=== PATIENT | female | born 1975 | race Caucasian/White ===

== ENCOUNTER 2017-06-03 13:41 | Emergency (ER) | payer OTHER ==
[2017-06-03] MEDS ORDERED: LIDOCAINE VISCOUS 2% 15 ML UDC MM STA (14:09)
[2017-06-03] MEDS ORDERED: MAG HYDROX/AL HYDROX/SIMETH 30 ML UDC PO STA (14:09)
[2017-06-03 14:24] LABS: BASOPHILS % (AUTO) 0.8 %; EOSINOPHILS # (AUTO) 0.1 10^3/uL (0.0-0.7); EOSINOPHILS % (AUTO) 1.7 %; LYMPHOCYTES # (AUTO) 1.2 10^3/uL (1.5-3.5); LYMPHOCYTES % (AUTO) 28.5 %; MEAN CORPUSCULAR HEMOGLOBIN 31.7 pg (27.0-31.0); MEAN CORPUSCULAR HGB CONC 34.5 g/dL (32.0-36.0); MEAN CORPUSCULAR VOLUME 91.8 fL (81.0-99.0); MONOCYTES # (AUTO) 0.2 10^3/uL (0.0-1.0); MONOCYTES % (AUTO) 5.1 %; NEUTROPHILS # (AUTO) 2.8 10^3/uL (1.5-6.6); NEUTROPHILS % (AUTO) 63.9 %; PLT - PLATELET COUNT 190 10^3/uL (130-450); RED BLOOD COUNT 4.41 10^6/uL (4.20-5.40); RED CELL DISTRIBUTION WIDTH 12.5 % (12.0-15.0); WHITE BLOOD COUNT 4.3 x10^3/uL (4.8-10.8)
[2017-06-03 14:42] LABS: ALBUMIN 4.7 g/dL (3.2-5.5); ALBUMIN/GLOBULIN RATIO 1.8 (1.0-2.2); BILIRUBIN,TOTAL 0.6 mg/dL (0.2-1.0); CALCIUM 9.2 mg/dL (8.5-10.3); CREATININE 0.8 mg/dL (0.4-1.0); TOTAL PROTEIN 7.3 g/dL (6.7-8.2)
--- NOTE | 2017-06-03 15:30 | XRAY Preliminary Report ---
Exam: XR CHEST 2 VIEW X-RAY IMPRESSION: Negative chest [facility] SITE ID: [id number]
--- NOTE | 2017-06-03 15:30 | XRAY Report ---
EXAM: CHEST RADIOGRAPHY EXAM DATE: 06/03/2017 02:25 PM. CLINICAL HISTORY: Chest pain. COMPARISON: None. TECHNIQUE: 2 views. FINDINGS: Lungs/Pleura: No focal opacities evident. No pleural effusion. No pneumothorax. Normal volumes. Mediastinum: Heart and mediastinal contours are unremarkable. Other: None. IMPRESSION: Negative chest [facility] Referring Provider Line: [phone] SITE ID: [id number]
--- NOTE | 2017-06-03 15:35 | ED Physician Documentation ---
PD HPI CHEST PAIN - Stated complaint Stated Complaint: CHEST PX - Chief complaint Chief Complaint: Cardiac - History obtained from History obtained from: Patient - History of Present Illness Timing - onset: Today Timing - onset during: Rest Timing - duration: Seconds Timing - details: Abrupt onset, Now resolved, Waxing and waning Quality: Pressure, Sharp, Pain Location: Substernal Radiation: Back Improved by: Nothing Associated symptoms: Nausea. No: Vomiting, Feeling faint / dizzy, General Weakness, Palpitations, Cough Similar symptoms before: Diagnosis (esophageal spasm occured with morphine) Recently seen: Not recently seen - Additional information Additional information: 41-year-old female with a history of irritable bowel syndrome has developed intermittent episodes of severe chest pain substernal radiating to her back. These episodes are brief in nature lasting approximately 30 seconds and severe. She is having increased episodes and has come to the emergency department for evaluation. She states that this started when she became nauseous and the pain has become worse. Review of Systems Constitutional: denies: Fever Eyes: denies: Decreased vision Ears: denies: Ear pain Nose: denies: Congestion Throat: denies: Sore throat Cardiac: reports: Chest pain / pressure. denies: Palpitations Respiratory: denies: Dyspnea, Cough GI: reports: Nausea. denies: Abdominal Pain, Vomiting : denies: Dysuria, Frequency Skin: denies: Rash Musculoskeletal: reports: Back pain. 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: Hysterectomy - Present Medications Home Medications: Ambulatory Orders Medication Instructions Recorded Confirmed Sucralfate [Carafate] 1 gm PO ACHS #30 tablet 06/03/17 Topiramate [Topamax] 50 mg PO 06/03/17 - Allergies Allergies/Adverse Reactions: Allergies Allergy/AdvReac Type Severity Reaction Status Date / Time morphine Allergy Unknown Verified 06/03/17 13:49 - Social History Does the pt smoke?: Yes Smoking Status: Current every day smoker Does the pt drink ETOH?: Yes Does the pt have substance abuse?: No PD ED PE NORMAL - Vitals Vital signs reviewed: Yes (Tachycardic and hypertensive) - General General: Alert and oriented X 3, No acute distress, Well developed/nourished - HEENT HEENT: Atraumatic, PERRL, EOMI - Neck Neck: Supple, no meningeal sign, No bony TTP - Cardiac Cardiac: RRR, No murmur - Respiratory Respiratory: No respiratory distress, Clear bilaterally, Other (Chest wall is nontender to palpation) - Abdomen Abdomen: Soft, Non tender - Back Back: No CVA TTP, No spinal TTP - Derm Derm: Normal color, Warm and dry, No rash - Extremities Extremities: No deformity, No edema - Neuro Neuro: Alert and oriented X 3, No motor deficit, No sensory deficit, Normal speech Eye Opening: Spontaneous Motor: Obeys Commands Verbal: Oriented GCS Score: 15 - Psych Psych: Normal mood, Normal affect Results - Vitals Vitals: Vital Signs - 24 hr 06/03/17 06/03/17 06/03/17 13:44 15:26 16:34 Temperature 36.8 C Heart Rate 110 H 75 74 Respiratory 16 14 16 Rate Blood Pressure 132/78 H 113/70 107/68 O2 Saturation 100 100 98 Oxygen O2 Source Room air - EKG (time done) 1350 Rate: Rate (enter#) (84) Rhythm: NSR Ischemia: Normal ST segments Compare to prior EKG: Old EKG unavailable Computer interpretation: Agree with computer - Labs Labs: Laboratory Tests 06/03/17 06/03/17 06/03/17 14:07 14:07 14:07 WBC 4.3 L RBC 4.41 Hgb 14.0 Hct 40.5 MCV 91.8 MCH 31.7 H MCHC 34.5 RDW 12.5 Plt Count 190 MPV 8.0 Neut # 2.8 Lymph # 1.2 L [place] # 0.2 Eos # 0.1 Baso # 0.0 Absolute Nucleated RBC 0.00 Nucleated RBC % 0.1 Sodium 136 Potassium 3.3 L Chloride 106 Carbon Dioxide 23 Anion Gap 7.0 BUN 15 Creatinine 0.8 Estimated GFR (MDRD) 78 L Glucose 115 H Calcium 9.2 Total Bilirubin 0.6 AST 23 ALT 16 Alkaline Phosphatase 58 Troponin I < 0.04 Total Protein 7.3 Albumin 4.7 Globulin 2.6 Albumin/Globulin Ratio 1.8 Lipase 26 Urine Color Urine Clarity Urine pH Ur Specific [place] Urine Protein Urine Glucose (UA) Urine Ketones Urine Occult Blood Urine Nitrite Urine Bilirubin Urine Urobilinogen Ur Leukocyte Esterase Ur Microscopic Review Urine Culture Comments Urine HCG, Qual 06/03/17 14:32 WBC RBC Hgb Hct MCV MCH MCHC RDW Plt Count MPV Neut # Lymph # [place] # Eos # Baso # Absolute Nucleated RBC Nucleated RBC % Sodium Potassium Chloride Carbon Dioxide Anion Gap BUN Creatinine Estimated GFR (MDRD) Glucose Calcium Total Bilirubin AST ALT Alkaline Phosphatase Troponin I Total Protein Albumin Globulin Albumin/Globulin Ratio Lipase Urine Color YELLOW Urine Clarity CLEAR Urine pH 6.5 Ur Specific [place] <=1.005 Urine Protein NEGATIVE Urine Glucose (UA) NEGATIVE Urine Ketones NEGATIVE Urine Occult Blood NEGATIVE Urine Nitrite NEGATIVE Urine Bilirubin NEGATIVE Urine Urobilinogen 0.2 (NORMAL) Ur Leukocyte Esterase NEGATIVE Ur Microscopic Review NOT INDICATED Urine Culture Comments NOT INDICATED Urine HCG, Qual NEGATIVE - Rads (name of study) 2 view chest Radiology: Prelim report reviewed (Impression: Negative chest.), EMP read indepedently, See rad report PD MEDICAL DECISION MAKING - ED course Complexity details: reviewed results, re-evaluated patient, considered differential, d/w patient ED course: 41-year-old female with substernal chest pain radiating to her back and episodes has a history of esophageal spasm associated with morphine. She feels the symptoms she was having today are reminiscent of that but not as severe. She looks significantly uncomfortable with each of these episodes and here in the emergency department she is administered a GI cocktail consisting of viscous lidocaine and Mylanta and she has had a reduction in the frequency of these attacks. She is given famotidine intravenously and Carafate orally. Departure - Departure Disposition: 01 Home, Self Care Clinical Impression: Esophageal spasm Condition: Stable Instructions: ED Spasm Esophageal Follow-Up: Your, doctor [Other] Prescriptions: Sucralfate [Carafate] 1 gm PO ACHS #30 tablet Comments: Today it appears your pain is related to esophageal spasm. I recommend that you use some medication to reduce the acid in your stomach on a regular basis for at least 1 week. In addition I have written a prescription for a medication called Carafate which you should put on your tongue and allow to dissolve about a half hour before eating and at bedtime.
[2017-06-03 15:44] LABS: BILIRUBIN,URINE NEGATIVE (NEGATIVE); GLUCOSE, URINE (UA) NEGATIVE (NEGATIVE); KETONES,URINE (UA) NEGATIVE (NEGATIVE); LEUKOCYTE ESTERASE, URINE NEGATIVE (NEGATIVE); NITRITE,URINE NEGATIVE (NEGATIVE); OCCULT BLOOD,URINE NEGATIVE (NEGATIVE); PH,URINE 6.5 PH (5.0-7.5); PROTEIN,URINE NEGATIVE (NEGATIVE); UROBILINOGEN,URINE 0.2 (NORMAL) E.U./dL (NORMAL)
[2017-06-03] MEDS ORDERED: SUCRALFATE 1 GM/10 ML UDC PO STA (15:46)
[2017-06-03] MEDS ORDERED: FAMOTIDINE 20 MG/50 ML 50 ML IV ONE (15:47)
[2017-06-03 15:49] LABS: CLARITY,URINE CLEAR (CLEAR)
[2017-06-03 15:50] LABS: HCG UR QUAL NEGATIVE
[2017-06-03 16:35] VITALS: BP 107/68
== END 2017-06-03 16:35 | disposition home or self-care (01) ==
LOC: ED 13:41
DX: K22.4 Dyskinesia of esophagus (principal); F17.200 Nicotine dependence, unspecified, uncomplicated
CPT/HCPCS: 36415; 71046; 80053; 81003; 81025; 83690; 84484; 85025; 93005; 96365; 99283; 99284; A9270; 81001; 87086

== ENCOUNTER 2017-11-20 08:01 | Outpatient (CLI) | payer OTHER ==
[2017-11-20] MEDS ORDERED: IOPAMIDOL-300 50 ML VIAL ONE (08:15)
[2017-11-20] MEDS ORDERED: IOPAMIDOL-300 100 ML VIAL ONE (09:04)
[2017-11-20] MEDS ORDERED: IOPAMIDOL-300 50 ML VIAL PO ONE (09:31)
[2017-11-20] MEDS ORDERED: IOPAMIDOL-300 100 ML VIAL IVP ONE (09:31)
--- NOTE | 2017-11-20 12:04 | CT Report ---
Reason: GENERALIZED ABD PAIN, CHANGE IN BOWEL HABITS, NAUS Procedure Date: 11/20/2017 Accession Number: [id number] / [id number] Procedure: CT - Abdomen/Pelvis W/ CPT Code: FULL RESULT: EXAM: CT ABDOMEN AND PELVIS EXAM DATE: 11/20/2017 09:20 AM. CLINICAL HISTORY: Generalized abdominal pain, change in bowel habits, nausea. COMPARISONS: None. TECHNIQUE: Routine helical CT imaging was performed through the abdomen and pelvis. IV contrast: 100 mL Isovue-300. Enteric contrast: Yes. Reconstructions: Coronal and sagittal. In accordance with CT protocol optimization, one or more of the following dose reduction techniques were utilized for this exam: automated exposure control, adjustment of mA and/or KV based on patient size, or use of iterative reconstructive technique. FINDINGS: Lung Bases: Unremarkable. Liver: Normal. No masses. Gallbladder/Bile Ducts: Status post cholecystectomy. Spleen: Normal. Pancreas: Normal. Adrenal Glands: Normal. Kidneys: Normal. No masses or hydronephrosis. Peritoneal Cavity/Bowel: Suggestion of thickening of haustral folds of the ascending and transverse colon. No free fluid, free air or adenopathy. No masses or acute inflammatory process. The appendix is well visualized and normal. Pelvic Organs: The patient is status hysterectomy. What is felt to represent a left ovary is identified along the left iliac vessels. Vasculature: No aneurysms or other significant abnormality. Bones: No significant abnormality. Other: None. IMPRESSION: Thickened haustral folds of the transverse and ascending colon. Recommend direct visualization by colonoscopy to evaluate for etiologies such as inflammatory bowel disease. [facility]
== END 2017-11-20 08:02 | disposition home or self-care (01) ==
LOC: DI 08:01
PROVIDERS: ATTEND Internal Medicine
DX: K63.89 Other specified diseases of intestine (principal)
CPT/HCPCS: 74177; Q9967

== ENCOUNTER 2018-03-28 08:38 | Outpatient (CLI) | payer OTHER | END 2018-03-28 08:39 | disposition home or self-care (01) | LOC: EMS 08:38 | PROVIDERS: ATTEND Surgery | DX: R07.9 Chest pain, unspecified (principal) | CPT/HCPCS: A0425; A0427 ==

== ENCOUNTER 2018-03-28 08:59 | Emergency (ER) | payer OTHER ==
--- NOTE | 2018-03-28 09:09 | ED Physician Documentation ---
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 Pain worse with breathing. Feels short of breath.), Still present Quality: Aching, Sharp, Pain. No: Pressure, Tightness Location: Substernal, Left chest Radiation: No: Jaw, Neck, Back Worsened by: Inspiration, Movement. No: Palpation Associated symptoms: Shortness of air. No: Nausea, Vomiting, Feeling faint / dizzy, Palpitations, Cough Similar symptoms before: Has not had sx before Recently seen: Not recently seen Review of Systems Constitutional: denies: Fever Nose: reports: Congestion (had some MARVEL symptoms last week but is better. Did not really have a cough.). denies: Rhinorrhea / runny nose Throat: denies: Sore throat Cardiac: reports: Chest pain / pressure. denies: Palpitations, Pedal edema, Calf pain Respiratory: reports: Dyspnea. 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 - Present Medications Home Medications: Ambulatory Orders Medication Instructions Recorded Confirmed Sucralfate [Carafate] 1 gm PO ACHS #30 tablet 06/03/17 Topiramate [Topamax] 50 mg PO 06/03/17 Dexamethasone [Decadron] 4 mg PO DAILY #5 tablet 03/28/18 Naproxen 500 mg PO BID #20 tablet 03/28/18 Oxycodone HCl/Acetaminophen 1 - 2 each PO Q6H PRN #14 tablet 03/28/18 [Percocet 5-325 mg Tablet] - Allergies Allergies/Adverse Reactions: Allergies Allergy/AdvReac Type Severity Reaction Status Date / Time morphine Allergy Unknown Verified 03/28/18 09:12 - Social History Does the pt smoke?: Yes Smoking Status: Current every day smoker Does the pt drink ETOH?: Yes Does the pt have substance abuse?: No - Family History Family history: denies: CAD, Sudden PD ED PE NORMAL - Vitals Vital signs reviewed: Yes (good sats and heart rate. ) - General General: Alert and oriented X 3, Well developed/nourished, Other (seems in pain; had improved with pain meds from EMS, but wearing off and pain returning. ) - HEENT HEENT: Ears normal, Pharynx benign - Neck Neck: Supple, no meningeal sign, No adenopathy - Cardiac Cardiac: RRR, No rub. No: No murmur (1/6 murmur left sternal, systolic seems likely MR. ) - Respiratory Respiratory: Clear bilaterally - Abdomen Abdomen: Normal bowel sounds, Soft, Non tender, Non distended - Female Female : Deferred - Rectal Rectal: Deferred - Back Back: No CVA TTP - Derm Derm: Normal color, Warm and dry - Extremities Extremities: No tenderness to palpate, Normal ROM s pain, No edema, No calf tenderness / cord Results - Vitals Vitals: Vital Signs - 24 hr 03/28/18 03/28/18 03/28/18 09:07 09:17 10:50 Temperature 36.3 C L Heart Rate 89 76 58 L Respiratory 14 14 14 Rate Blood Pressure 140/69 H 140/69 H 107/74 O2 Saturation 96 95 98 03/28/18 03/28/18 12:12 12:32 Temperature 36.8 C Heart Rate 62 77 Respiratory 16 17 Rate Blood Pressure 111/46 L 111/66 O2 Saturation 96 94 Oxygen O2 Source Room air - EKG (time done) 09:05 Rate: Rate (enter#) (80) Rhythm: NSR [place]: Normal Intervals: Normal NM QRS: Normal Ischemia: Normal ST segments. No: ST elevation c/w ischemia, ST depression - Labs Labs: Laboratory Tests 03/28/18 03/28/18 03/28/18 09:45 09:45 09:45 WBC 5.0 RBC 4.41 Hgb 13.9 Hct 39.8 MCV 90.1 MCH 31.5 H MCHC 34.9 RDW 12.2 Plt Count 180 MPV 8.3 Neut # (Auto) 3.6 Lymph # (Auto) 0.9 L [place] # (Auto) 0.3 Eos # (Auto) 0.1 Baso # (Auto) 0.0 Absolute Nucleated RBC 0.00 Nucleated RBC % 0.0 D-Dimer Sodium 136 Potassium 4.0 Chloride 102 Carbon Dioxide 24 Anion Gap 10.0 BUN 18 Creatinine 0.8 Estimated GFR (MDRD) 78 L Glucose 90 Calcium 9.6 Total Bilirubin 0.9 AST 22 ALT 15 Alkaline Phosphatase 55 Troponin I < 0.04 B-Natriuretic Peptide Total Protein 7.1 Albumin 4.4 Globulin 2.7 Albumin/Globulin Ratio 1.6 Lipase 32 03/28/18 03/28/18 09:45 09:45 WBC RBC Hgb Hct MCV MCH MCHC RDW Plt Count MPV Neut # (Auto) Lymph # (Auto) [place] # (Auto) Eos # (Auto) Baso # (Auto) Absolute Nucleated RBC Nucleated RBC % D-Dimer < 200.0 L Sodium Potassium Chloride Carbon Dioxide Anion Gap BUN Creatinine Estimated GFR (MDRD) Glucose Calcium Total Bilirubin AST ALT Alkaline Phosphatase Troponin I B-Natriuretic Peptide 10 Total Protein Albumin Globulin Albumin/Globulin Ratio Lipase - Rads (name of study) chest xray Radiology: Prelim report reviewed (normal exam), EMP read contemporaneously, See rad report PD MEDICAL DECISION MAKING - ED course Complexity details: reviewed results (no threatening causes for the chest pain with negative CXR, BNP, Trop, D-dimer and ECG. Pleuritic in character, hurts for breathing. ), considered differential, d/w patient Departure - Departure Disposition: 01 Home, Self Care Clinical Impression: Chest pain, pleuritic Condition: Stable Record reviewed to determine appropriate education?: Yes Instructions: ED Chest Pain Pleurisy Follow-Up: TRACEY MCGOVERN ARNP [Primary Care Provider] - Prescriptions: Dexamethasone [Decadron] 4 mg PO DAILY #5 tablet Naproxen 500 mg PO BID #20 tablet Oxycodone HCl/Acetaminophen [Percocet 5-325 mg Tablet] 1 - 2 each PO Q6H PRN #14 tablet PRN Reason: pain Comments: Presume this is some inflammation in the chest wall muscles or around the lung. There is no signs of heart attack or heart failure blood clots pneumonia collapsed lung as the bad causes for chest pain. There is no particular test for pleurisy or musculoskeletal pain until presume its that category and treated with anti-inflammatories and pain medicine. Rest for couple of days it should taper down and improve. Recheck if not improved over the next few days or if other symptoms develop. Forms: Activity restrictions Discharge Date/Time: 03/28/18 12:34
[2018-03-28] MEDS ORDERED: SODIUM CHLORIDE 0.9% 1,000 ML IV ONE (09:28)
[2018-03-28] MEDS ORDERED: fentaNYL 100 MCG/2 ML VIAL IVP STA (09:29)
[2018-03-28] MEDS ORDERED: NITROGLYCERIN SL 0.4 MG TABLET SL STA (09:29)
[2018-03-28 09:52] LABS: BASOPHILS % (AUTO) 0.8 %; EOSINOPHILS # (AUTO) 0.1 10^3/uL (0.0-0.7); EOSINOPHILS % (AUTO) 1.7 %; HGB - HEMOGLOBIN 13.9 g/dL (12.0-16.0); LYMPHOCYTES # (AUTO) 0.9 10^3/uL (1.5-3.5); LYMPHOCYTES % (AUTO) 18.2 %; MEAN CORPUSCULAR HEMOGLOBIN 31.5 pg (27.0-31.0); MEAN CORPUSCULAR HGB CONC 34.9 g/dL (32.0-36.0); MEAN CORPUSCULAR VOLUME 90.1 fL (81.0-99.0); MEAN PLATELET VOLUME 8.3 fL (7.9-10.8); MONOCYTES # (AUTO) 0.3 10^3/uL (0.0-1.0); MONOCYTES % (AUTO) 6.5 %; NEUTROPHILS # (AUTO) 3.6 10^3/uL (1.5-6.6); NEUTROPHILS % (AUTO) 72.8 %; PLT - PLATELET COUNT 180 10^3/uL (130-450); RED BLOOD COUNT 4.41 10^6/uL (4.20-5.40); RED CELL DISTRIBUTION WIDTH 12.2 % (12.0-15.0)
[2018-03-28 10:06] LABS: ALBUMIN 4.4 g/dL (3.2-5.5); ALBUMIN/GLOBULIN RATIO 1.6 (1.0-2.2); BILIRUBIN,TOTAL 0.9 mg/dL (0.2-1.0); CALCIUM 9.6 mg/dL (8.5-10.3); CREATININE 0.8 mg/dL (0.4-1.0); TOTAL PROTEIN 7.1 g/dL (6.7-8.2)
--- NOTE | 2018-03-28 10:59 | XRAY Report ---
Reason: chest pressure, pleuritic today Procedure Date: 03/28/2018 Accession Number: [id number] / [id number] Procedure: XR - Chest 2 View X-Ray CPT Code: 52588 FULL RESULT: EXAM: CHEST RADIOGRAPHY EXAM DATE: 03/28/2018 10:35 AM. CLINICAL HISTORY: Chest pressure, pleuritic today. COMPARISON: CHEST 2 VIEW 06/03/2017 2:13 PM. TECHNIQUE: 2 views. FINDINGS: Lungs/Pleura: No focal opacities evident. No pleural effusion. No pneumothorax. Normal volumes. Mediastinum: Heart and mediastinal contours are unremarkable. Other: None. IMPRESSION: Normal 2-view chest radiography. [facility]
[2018-03-28] MEDS ORDERED: DEXAMETHASONE 10 MG/ML VIAL IVP STA (11:14)
[2018-03-28] MEDS ORDERED: KETOROLAC 30 MG/ML VIAL IVP STA (11:14)
[2018-03-28] MEDS ORDERED: HYDROmorphone 2 MG/ML VIAL IVP STA (11:14)
[2018-03-28 12:34] VITALS: BP 111/66
== END 2018-03-28 12:34 | disposition home or self-care (01) ==
LOC: EDUNIT# → ED 08:59
DX: R07.81 Pleurodynia (principal); F17.200 Nicotine dependence, unspecified, uncomplicated
CPT/HCPCS: 36415; 71046; 80053; 83690; 83880; 84484; 85025; 85379; 93005; 96361; 96374; 96375; 99284; A9270; J1170

== ENCOUNTER 2018-04-22 15:50 | Outpatient (CLI) | payer OTHER | END 2018-04-22 15:51 | disposition home or self-care (01) | LOC: DI.N 15:50 | PROVIDERS: ATTEND Nurse Practitioner Adult Health | DX: Z53.9 Procedure and treatment not carried out, unspecified reason (principal) ==

== ENCOUNTER 2018-05-24 12:27 | Outpatient (CLI) | payer OTHER ==
--- NOTE | 2018-05-24 13:33 | Mammography Report ---
Reason: LT BREAST LUMP Procedure Date: 05/24/2018 Accession Number: [id number] / [id number] Procedure: OCTAVIO - Diagnostic Dig Bilat CPT Code: FULL RESULT: EXAM: Diagnostic Dig Bilat DATE: 05/24/2018 1:15 PM CLINICAL HISTORY: Nonlocalized bilateral breast pain for a month left slightly more tender than the right. No reported personal or family history of breast cancer. TECHNIQUE: Bilateral CC and MLO views were obtained. COMPARISON: 06/10/2015 through 05/29/2013 FINDINGS: The breasts demonstrate heterogeneously dense fibroglandular parenchyma bilaterally. Bilateral breasts: There are no suspicious masses, calcifications or areas of distortion. No mammographic findings to correspond to the nonlocalized bilateral breast pain. Given nonlocalized nature of symptoms, breast ultrasound was not performed. IMPRESSION: Bilateral breasts: Negative imaging findings. No mammographic findings to correspond to nonlocalized bilateral breast tenderness. Negative. BI-RADS Category 1. Clinical follow-up for breast pain is recommended. Patient should return for further evaluation for increase in current symptoms or new symptoms/concerns. Otherwise recommend annual screening mammography. BI-RADS CATEGORY 1: Negative STANDARD QUALIFYING STATEMENTS: 1. This examination was not reviewed with the aid of Computer-Aided Detection (CAD). 2. A negative or benign imaging report should not preclude biopsy if clinically suspicious findings are present. 3. Dense breasts may obscure an underlying neoplasm. 4. This examination was reviewed with the aid of 3D breast imaging (tomosynthesis).
== END 2018-05-24 12:28 | disposition home or self-care (01) ==
LOC: DI 12:27
PROVIDERS: ATTEND Nurse Practitioner Adult Health
DX: N63.21 Unspecified lump in the left breast, upper outer quadrant (principal); N64.4 Mastodynia
CPT/HCPCS: 77066